=== PATIENT | male | born 2000 | race Caucasian/White ===

== ENCOUNTER 2020-05-02 09:44 | Outpatient (CLI) | payer OTHER, SELFPAY ==
--- NOTE | 2020-05-02 09:58 | XR_ITS ---
WS: [id number] THORACIC SPINE TECHNIQUE: 3 views of the thoracic spine CLINICAL INFORMATION: tspine tenderness COMPARISON: None. FINDINGS: Normal thoracic alignment. No acute compression fractures. Disc space heights and vertebral body heig hts are well maintained. Visualized lungs are well aerated. No acute thoracic spine findings. XR/XR thoracic spine 3V* [id number] IMPRESSION: No acute thoracic spine findings
--- NOTE | 2020-05-02 09:58 | XR_ITS ---
WS: [id number] SHOULDER RIGHT TECHNIQUE: 3 views of the right shoulder CLINICAL INFORMATION: bilateral shoulder pain COMPARISON: None. FINDINGS: Normal acromioclavicular joint. Normal glenohumeral joint. Acromion is normal in appearance. Normal g lenoid. No evidence of acute fracture dislocation. XR/XR shoulder RT min 2V* [id number] IMPRESSION: Normal right shoulder.
--- NOTE | 2020-05-02 09:58 | XR_ITS ---
WS: [id number] CERVICAL SPINE TECHNIQUE: 3 views of the cervical spine CLINICAL INFORMATION: cspine tenderness; part of tree fell on him COMPARISON: None. FINDINGS: Straightening with slight reversal of the normal cervical lordosis. Normal C1-C2 articulation. Digna l prevertebral soft tissues. Disc space heights and vertebral body heights well-preserved. No acute f indings. XR/XR cervical spine 3V* [id number] IMPRESSION: Straightening with slight reversal normal cervical lordosis. Otherwise normal c ervical spine.
--- NOTE | 2020-05-02 09:58 | XR_ITS ---
WS: [id number] SHOULDER LEFT TECHNIQUE: 3 views of the left shoulder CLINICAL INFORMATION: bilateral shoulder pain COMPARISON: None. FINDINGS: Normal acromioclavicular joint. Normal glenohumeral joint. Acromion is normal in appearance. Normal g lenoid. No evidence of acute fracture dislocation. XR/XR shoulder LT min 2V* [id number] IMPRESSION: Normal left shoulder.
== END 2020-05-02 09:45 | disposition home or self-care (01) ==
LOC: RADWPI 09:47
PROVIDERS: Family Provider Nurse Practitioner Family; PCP Nurse Practitioner Family; Visit Provider Nurse Practitioner Family
DX: M25.511 Pain in right shoulder (principal); M25.512 Pain in left shoulder; M54.2 Cervicalgia; M54.6 Pain in thoracic spine
CPT/HCPCS: 72040; 72072; 73030

== ENCOUNTER → 2021-08-01 11:07 | Outpatient (BNVA) | payer SELFPAY | PROVIDERS: Family Provider Nurse Practitioner Family; PCP Nurse Practitioner; Visit Provider Registered Nurse Neonatal Intensive Care | DX: S69.92XA Unspecified injury of left wrist, hand and finger(s), initial encounter (principal); X58.XXXA Exposure to other specified factors, initial encounter | CPT/HCPCS: 73110; 73130 ==

== ENCOUNTER 2023-03-17 09:13 | Emergency (ER) | payer SELFPAY ==
[2023-03-17 09:32] VITALS: BP 137/94; PULSE 70; RESP 16; TEMP 36.8; O2SAT 99; BMI 33.5
--- NOTE | 2023-03-17 09:36 | ED_ITS ---
HPI - Back Pain/Injury General: Chief Complaint: Back Pain/Injury Stated Complaint: back pain Time Seen by Provider: 03/17/23 09:21 Source: patient Mode of arrival: ambulatory Limitations: no limitations History of Present Illness: Patient is a 22-year-old male who presents to ED today with a complaint of lower back pain. Patient states he chronically has lower back pain that he attributes to his work which consists of heavy lifting. He states this morning he woke up with pain located to his left lower back with radiation down into his left lower extremity above the knee. He has not noticed any weakness to the extremity. Denies numbness, tingling, loss of sensation. Denies saddle anesthesia. Denies bowel or bladder dysfunction. He is ambulatory without difficulty or assistance. No known injury or trauma. No flank pain. MD elicited complaint: back pain Pertinent past history: prior back pain Onset (ago): hour(s) Timing: constant Severity: moderate Similar Symptoms Previously: Yes Location: left lower back Radiation: left upper leg Exacerbating factors: none Relieving factors: none Associated symptoms: Reports no associated symptoms; Deny abdominal pain, chills, change in bowel habits, dysuria, fatigue, fever(s), hematuria, nausea or vomiting Treatments prior to arrival: NSAIDS Work related injury: No Review of Systems Const: Denies: fever(s), chills, body aches, fatigue or malaise Card: Denies: chest pain Resp: Denies: dyspnea GI: Denies: abdominal pain, nausea, vomiting or change in bowel habits : Denies: flank pain, dysuria or hematuria Musc: Reports: back pain; Denies: neck pain, extremity pain, extremity swelling, joint pain, joint swelling, joint redness, joint warmth or limited range of motion Skin/Breast: Denies: rash Neuro: Denies: headache(s), numbness in extremities, weakness in extremities or sensory changes PFSH ED PFSH: Social History Smoking and tobacco status: current every day smoker smokeless tobacco Smokeless tobacco details: can PPD x 3 yrs Second hand smoke exposure: Yes Alcohol intake: never Substance/Drug Use: never Lives independently: No Marital status: Single Current occupational status: employed Current gender identity: Male Physical Exam Const: COMMON NORMALS: no acute distress, patient oriented x3, no limitations, alert and well nourished GENERAL APPEARANCE: cooperative ORIENTATION/CONSCIOUSNESS: Yes awake, Yes oriented to person, Yes oriented to place and Yes oriented to time HENMT: COMMON NORMALS: normocephalic and atraumatic HEAD & SCALP: normal to inspection, normocephalic and atraumatic Resp: COMMON NORMALS: normal respiratory effort and clear to auscultation bilaterally AUSCULTATION: clear to auscultation bilaterally Cardio: COMMON NORMALS: regular rate and regular rhythm RATE: regular rate RHYTHM: regular rhythm : COMMON NORMALS: Yes no CVA tenderness BLADDER/KIDNEY EXAM: Yes no CVA tenderness Back/Pelvis: COMMON NORMALS: no CVA tenderness, thoracic and lumbar spine normal to inspection and thoraco-lumbar ROM normal THORACIC SPINE/UPPER BACK: Yes normal to inspection, No thoracic spinal tenderness, No paraspinal muscle tenderness and No paraspinal muscle spasm LUMBAR SPINE/LOWER BACK: Yes normal to inspection, No lumbar spinal tenderness, Yes paraspinal muscle tenderness and No paraspinal muscle spasm PELVIS: Yes buttocks normal and Yes sciatic notch tenderness SACROILIAC JOINTS: Yes SI joint(s) abnormal SI joint details: tender to palpation (L) SACRUM: no tenderness COCCYX: no tenderness Extremity: COMMON NORMALS: normal to inspection and full ROM GENERAL: Yes normal exam except as noted Neuro: COMMON NORMALS: patient oriented x3, moves all extremities, no focal motor deficits, no sensory deficits noted and gait normal SENSORIUM/ORIENTATION: Yes alert, Yes oriented to person, Yes oriented to place and Yes oriented to time MOTOR EXAM: 5/5 motor strength present throughout DEEP TENDON REFLEXES: Right patellar reflex intensity grade: 2+ and Left patellar reflex intensity grade: 2+ Skin: COMMON NORMALS: no rashes or lesions noted GENERAL SKIN EXAM: no rashes or lesions noted Course Vital Signs: Vital signs: Vital Signs Temperature 98.2 F 03/17/23 09:32 Pulse Rate 70 03/17/23 09:32 Respiratory Rate 16 03/17/23 09:32 Blood Pressure 137/94 03/17/23 09:32 Pulse Oximetry 99 03/17/23 09:32 Oxygen Delivery Me thod Room Air 03/17/23 09:32 MDM - Back Pain/Injury Medical Decision Making Patient will be treated with anti-inflammatories, muscle relaxers, steroids. Recommend follow-up with PCP if symptoms do not seem to improve. XR of his lumbar spine is negative. Patient has no red flag symptoms on history or physical exam to warrant further imaging or testing at this time. Discharge Plan Discharge Patient Disposition: Home Clinical Impression: Acute left lumbar radiculopathy Condition: Stable Prescriptions: New cyclobenzaprine 10 mg tablet 10 mg PO TID Qty: 14 0RF ibuprofen 800 mg tablet 800 mg PO Q8H PRN (Reason: pain) Qty: 20 0RF Medrol (Facundo) 4 mg tablets,dose pack See Rx Instructions .ROUTE .COMPLEX Qty: 21 0RF Rx Instructions: orally per package directions Discharge Orders: Discharge ED (Routine); Ordered 03/17/23 Ordered By: Tresa Hinkle Referrals: Kelly Stiles FNP-C [Primary Care Provider] - Patient Instructions: Lumbar Radiculopathy (ED) Coding Level of Care Code ED Bilingual Branch Manager for Lise Blackmon
--- NOTE | 2023-03-17 10:08 | XR_ITS ---
WS: [id number] Exam: XR lumbar spine 2-3V* [id number] Date/Time of Exam: 03/17/2023 10:15 AM Reason For Exam: back pain No acute fracture or dislocation. Disc spaces are preserved. Posterior elements appear to be intact. IMPRESSION: 1. Negative lumbar spine study.
[2023-03-17] MEDS: ketorolac 60 mg/2 mL INJ IM (10:24)
--- NOTE | 2023-03-17 14:22 | DCPLANNER ---
sales performance manager had message to speak with patient about getting established with a primary care physician. sales performance manager called patient, unable to speak with patient at this time and unable to leave a voicemail for patient.
== END 2023-03-17 10:52 | disposition home or self-care (01) ==
PROVIDERS: Emergency Provider Physician Assistant; PCP Nurse Practitioner
DX: M54.16 Radiculopathy, lumbar region (principal); F17.220 Nicotine dependence, chewing tobacco, uncomplicated
CPT/HCPCS: 72100; 96372; 99284; J1885

== ENCOUNTER 2024-07-17 12:27 | Emergency (ER) | payer OTHER, SELFPAY ==
[2024-07-17 12:29] VITALS: BP 101/54; PULSE 102; RESP 18; TEMP 37.6; O2SAT 98; BMI 34.8
--- NOTE | 2024-07-17 12:44 | ED_ITS ---
HPI - Epistaxis General: Chief complaint: Epistaxis Stated complaint: nose bleeding Time Seen by Provider: 07/17/24 12:37 Source: patient Mode of arrival: ambulatory Limitations: no limitations History of Present Illness: 24-year-old male states that he had woke up this morning with a nosebleed states that was able to stop on his own started bleeding again an hour ago it resolved again he states his blood pressure had been high this morning when checked but is now 101/54. He denies any injuries he is not on any blood thinners denies any other issues Associated symptoms: Deny fever(s), headache(s) or vomiting Related Data Home Medications Medication Instructions Recorded Confirmed No Known Home Medications 07/17/24 07/17/24 Allergies Allergy/AdvReac Type Severity Reaction Status Date / Time No Known Allergies Allergy Verified 07/17/24 12:32 Review of Systems Const: Denies: fever(s), chills, body aches or change in appetite ENMT: Reports: epistaxis; Denies: throat pain or dental pain Card: Denies: chest pain Resp: Denies: dyspnea GI: Denies: abdominal pain, nausea, vomiting or diarrhea Musc: Denies: neck pain or back pain Skin/Breast: Denies: rash Neuro: Denies: headache(s) PFSH ED PFSH: Social History Smoking and tobacco/nicotine status: current every day tobacco/nicotine user smokeless tobacco Smokeless tobacco details: can PPD x 3 yrs Second hand smoke exposure: Yes Alcohol intake: never Substance/Drug Use: never Lives independently: No Marital status: Single Current occupational status: employed Current gender identity: Male Physical Exam Const: COMMON NORMALS: no acute distress, patient oriented x3 and healthy appearing HENMT: COMMON NORMALS: normocephalic and atraumatic HEAD & SCALP: normocephalic and atraumatic OTHER: Dried blood in right nare no active bleeding Eye: COMMON NORMALS: Equal, round and reactive pupils present and EOMs intact bilaterally PUPIL: Yes Equal, round and reactive pupils present Neck/C-Spine: COMMON NORMALS: full ROM and supple Chest: COMMONS NORMALS: normal inspection of the chest Resp: COMMON NORMALS: normal respiratory effort Cardio: COMMON NORMALS: regular rate RATE: regular rate GI: COMMON NORMALS: non-tender Extremity: COMMON NORMALS: normal to inspection and full ROM Neuro: COMMON NORMALS: patient oriented x3, moves all extremities and no focal motor deficits Psych: COMMON NORMALS: mental status grossly normal, Normal thought process present and cooperative THOUGHT PROCESS: Normal thought process present Skin: COMMON NORMALS: no rashes or lesions noted and no wounds GENERAL SKIN EXAM: no rashes or lesions noted Course Vital Signs: Vital signs: Vital Signs Temperature 99.6 F 07/17/24 12:29 Pulse Rate 91 07/17/24 13:13 Respiratory Rate 18 07/17/24 13:13 Blood Pressure 136/84 07/17/24 13:13 Pulse Oximetry 98 07/17/24 13:13 Oxygen Delivery Me thod Room Air 07/17/24 12:29 MDM - Epistaxis Medical Decision Making Patient presents here with a nosebleed he has had no bleeding here his blood pressures been normal he is stable for discharge he is to follow-up with PCP return if worsening he understands agrees to plan. Medical Records I reviewed the patient's medical records. No radiology studies performed this visit Discharge Plan Discharge Patient Disposition: Home Clinical Impression: Epistaxis Condition: Stable Prescriptions: No Action No Known Home Medications Discharge Orders: Discharge ED (Routine); Ordered 07/17/24 Ordered By: James Mitchell Referrals: Kelly Stiles, [employer] SERVICER-C [Primary Care Provider] - 4-7 days Discharge Diet: Advance as tolerated Discharge Activity: Resume usual activity Patient Instructions: Epistaxis - Adult Coding Level of Care Code ED Tie Mill Operator for Lise Blackmon
[2024-07-17] MEDS: oxymetazoline 0.05% Nasal Spray 15 mL 2 SPRAY NOSTRIL-B (12:47)
[2024-07-17 13:13] VITALS: BP 136/84; PULSE 91; RESP 18; O2SAT 98
[2024-07-17 13:41] VITALS: BP 138/93; PULSE 91; O2SAT 95
== END 2024-07-17 13:44 | disposition home or self-care (01) ==
PROVIDERS: Emergency Provider Emergency Medicine; PCP Nurse Practitioner
DX: R04.0 Epistaxis (principal); F17.290 Nicotine dependence, other tobacco product, uncomplicated
CPT/HCPCS: 99283